=== PATIENT | male | born 1950 | race Caucasian/White ===

== ENCOUNTER 2017-01-28 11:46 | Inpatient (IN) | payer MEDICARE, OTHER ==
[~2017-01-28] VITALS: Ht 185.4 cm; Wt 89.4 kg
[~2017-01-28 11:46] MED LIST: ACET-1770 PO; ALBU18HF INH; AMLO10TA2 PO; AMLO5TAB4 PO; ATOR40TA78 PO; BENA40TA2 PO; CEFU500T PO; DEXA5DRO PO; FURO20TA3 PO; GUAI200T3 PO; HYDR-3237 PO; LABE100T26 PO; LEVO75TA5 PO; LORA1TAB PO; PRED10TA PO; SPIR50TA2 PO; TADA5TAB2 PO; TRIA1TAB3 PO; UMEC1DIS HOMEMEDPO
[2017-01-28 12:30] LABS: HEMATOCRIT 47.9 % (39.2-51.8); HEMOGLOBIN 16.5 g/dL (13.7-18.0); WHITE BLOOD COUNT 14.3 x10^3/uL (3.4-10)
[2017-01-28] MEDS ORDERED: SODIUM CHLORIDE 0.9% 1,000ML IVBOLUS ONE (12:30)
[2017-01-28] MEDS ORDERED: DIPHENHYDRAMINE 50 MG/ML, 1ML IVPush ONE (12:30)
[2017-01-28] MEDS ORDERED: PROCHLORPERAZINE 5 MG/ML, 2ML IVPush ONE (12:30)
[2017-01-28 12:41] LABS: BLOOD UREA NITROGEN 19 mg/dL (7-18)
[2017-01-28] MEDS ORDERED: PROCHLORPERAZINE 5 MG/ML, 2ML ONE (13:05)
[2017-01-28] MEDS ORDERED: DIPHENHYDRAMINE 50 MG/ML, 1ML ONE (13:05)
[2017-01-28] MEDS ORDERED: HYDR25TA6 PO (13:26)
[2017-01-28] MEDS ORDERED: TIOT4MIS3 INH (13:26)
[2017-01-28] MEDS ORDERED: POTASSIUM CHLORIDE 40 MEQ in SODIUM CHLORIDE 0.9% 500 ML IV ONE (14:30)
[2017-01-28] MEDS: POTASSIUM CHLORIDE 40 MEQ in SODIUM CHLORIDE 0.9% 500 ML IV SCH ×2 (16:00→19:39)
[2017-01-28] MEDS ORDERED: FUROSEMIDE 20 MG TABLET PO SCH (16:00)
[2017-01-28 16:13] VITALS: BP 139/80
[2017-01-28] MEDS: HYDROcodone/APAP 5/325 TABLET PO PRN (18:11)
[2017-01-28 19:26] VITALS: BP 117/62
[2017-01-28] MEDS: MECLIZINE CHEWABLE 25 MG TAB PO SCH (19:39)
[2017-01-28] MEDS: LABETALOL 100 MG TABLET PO SCH (19:39)
[2017-01-28] MEDS: ATORVASTATIN 40 MG TABLET PO SCH (19:42)
[2017-01-29] MEDS: MECLIZINE CHEWABLE 25 MG TAB PO SCH ×4 (00:17→20:02)
[2017-01-29 01:06] VITALS: BP 154/79
[2017-01-29] MEDS: HYDROcodone/APAP 5/325 TABLET PO PRN ×4 (03:42→16:54)
[2017-01-29 05:37] LABS: BLOOD UREA NITROGEN 14 mg/dL (7-18)
[2017-01-29] MEDS: LABETALOL 100 MG TABLET PO SCH ×2 (06:13→17:24)
[2017-01-29 07:13] VITALS: BP 176/94
[2017-01-29] MEDS: OLODATEROL HCL INH SCH (09:00)
[2017-01-29] MEDS ORDERED: HYDROCHLOROTHIAZIDE 25 MG TABLET PO SCH (09:00)
[2017-01-29] MEDS: [UNRECOGNIZED DRUG - OTHER] INH SCH (09:00)
[2017-01-29] MEDS: TIOTROPIUM BR INH SCH (09:00)
[2017-01-29] MEDS ORDERED: POTASSIUM CHLORIDE 20 MEQ TAB.ER.PRT PO ONE (09:00)
[2017-01-29] MEDS: METHOCARBAMOL 500 MG TABLET PO SCH ×3 (09:56→20:02)
[2017-01-29] MEDS: BENAZEPRIL 20 MG TABLET PO SCH (09:57)
[2017-01-29] MEDS: FUROSEMIDE 20 MG TABLET PO SCH (09:57)
[2017-01-29] MEDS: LEVOTHYROXINE 75 MCG TABLET PO SCH (09:59)
[2017-01-29] MEDS: AMLODIPINE 5 MG TABLET PO SCH (10:05)
[2017-01-29 10:49] LABS: PATH.CAST-FLAG NOT PRESENT; SPERM-FLAG NOT PRESENT; SRC-FLAG NOT PRESENT; XTAL-FLAG NOT PRESENT; YLC-FLAG NOT PRESENT
[2017-01-29 13:53] VITALS: BP_SYST 176; BP_SYST 187; BP_DIAS 85; BP_DIAS 96
[2017-01-29] MEDS ORDERED: morphine SULFATE 10 MG/ML, 1ML ONE ×2 (15:22→20:06)
[2017-01-29] MEDS: MORPHINE SULFATE 4 MG/ML, 1ML IVPush PRN ×2 (15:31→20:10)
[2017-01-29] MEDS: ATORVASTATIN 40 MG TABLET PO SCH (20:02)
[2017-01-29 20:23] VITALS: BP 132/74
[2017-01-30] VITALS (9 sets, daily range): BP systolic 139–200; BP diastolic 79–101
[2017-01-30] MEDS: MECLIZINE CHEWABLE 25 MG TAB PO SCH ×4 (02:02→20:11)
[2017-01-30] MEDS: ONDANSETRON 2MG/ML, 2ML IVPush PRN ×2 (02:10→12:55)
[2017-01-30] MEDS: HYDROcodone/APAP 5/325 TABLET PO PRN ×3 (02:12→20:27)
[2017-01-30] MEDS: LABETALOL 100 MG TABLET PO SCH ×3 (04:23→20:11)
[2017-01-30 05:22] LABS: HEMATOCRIT 47.2 % (39.2-51.8); HEMOGLOBIN 16.1 g/dL (13.7-18.0); WHITE BLOOD COUNT 12.8 x10^3/uL (3.4-10)
[2017-01-30 05:25] LABS: BLOOD UREA NITROGEN 12 mg/dL (7-18)
[2017-01-30] MEDS: METHOCARBAMOL 500 MG TABLET PO SCH ×4 (05:27→20:09)
[2017-01-30] MEDS: FUROSEMIDE 20 MG TABLET PO SCH (08:32)
[2017-01-30] MEDS: LEVOTHYROXINE 75 MCG TABLET PO SCH (08:33)
[2017-01-30] MEDS: BENAZEPRIL 20 MG TABLET PO SCH (08:33)
[2017-01-30] MEDS: AMLODIPINE 5 MG TABLET PO SCH ×2 (08:33→20:10)
[2017-01-30] MEDS: OLODATEROL HCL INH SCH (09:00)
[2017-01-30] MEDS: [UNRECOGNIZED DRUG - OTHER] INH SCH (09:00)
[2017-01-30] MEDS: TIOTROPIUM BR INH SCH (09:00)
[2017-01-30] MEDS ORDERED: LORazepam 2 MG/ML, 1ML IVPush ONE (12:00)
[2017-01-30] MEDS: hydrALAzine 20 MG/ML, 1ML IV SCH ×2 (12:01→18:30)
[2017-01-30] MEDS: FENTANYL 50 MCG PATCH TD SCH (12:02)
[2017-01-30] MEDS: KETOROLAC 30 MG/1 ML IVPush SCH ×2 (13:01→18:29)
[2017-01-30] MEDS ORDERED: ONDANSETRON 2MG/ML, 2ML IVPush ONE (18:00)
[2017-01-30] MEDS: LORazepam 2 MG/ML, 1ML IVPush PRN (18:28)
[2017-01-30] MEDS: ATORVASTATIN 40 MG TABLET PO SCH (20:10)
[2017-01-31] VITALS (11 sets, daily range): BP systolic 125–204; BP diastolic 72–112
[2017-01-31] MEDS: KETOROLAC 30 MG/1 ML IVPush SCH ×2 (00:21→06:11)
[2017-01-31] MEDS: hydrALAzine 20 MG/ML, 1ML IV SCH ×5 (00:21→23:43)
[2017-01-31] MEDS: MECLIZINE CHEWABLE 25 MG TAB PO SCH ×4 (01:40→21:32)
[2017-01-31] MEDS: LORazepam 2 MG/ML, 1ML IVPush PRN (01:40)
[2017-01-31] MEDS: HYDROcodone/APAP 5/325 TABLET PO PRN ×4 (02:31→21:31)
[2017-01-31] MEDS: METHOCARBAMOL 500 MG TABLET PO SCH ×4 (06:11→21:32)
[2017-01-31] MEDS: LABETALOL 100 MG TABLET PO SCH ×2 (06:35→18:13)
[2017-01-31] MEDS ORDERED: LORazepam 2 MG/ML, 1ML IVPush PRN (08:00)
[2017-01-31] MEDS ORDERED: HALOPERIDOL 5 MG/ML IM PRN (08:30)
[2017-01-31] MEDS: [UNRECOGNIZED DRUG - OTHER] INH SCH (09:00)
[2017-01-31] MEDS: OLODATEROL HCL INH SCH (09:00)
[2017-01-31] MEDS: TIOTROPIUM BR INH SCH (09:00)
[2017-01-31] MEDS: LEVOTHYROXINE 75 MCG TABLET PO SCH (09:00)
[2017-01-31] MEDS: AMLODIPINE 5 MG TABLET PO SCH ×2 (09:06→21:33)
[2017-01-31] MEDS: FUROSEMIDE 20 MG TABLET PO SCH (09:06)
[2017-01-31] MEDS: BENAZEPRIL 20 MG TABLET PO SCH (09:06)
[2017-01-31] MEDS: ATORVASTATIN 40 MG TABLET PO SCH (21:33)
[2017-02-01] VITALS (8 sets, daily range): BP systolic 122–165; BP diastolic 66–95
[2017-02-01] MEDS: MECLIZINE CHEWABLE 25 MG TAB PO SCH ×2 (03:05→10:13)
[2017-02-01] MEDS: METHOCARBAMOL 500 MG TABLET PO SCH ×4 (05:40→21:20)
[2017-02-01] MEDS: hydrALAzine 20 MG/ML, 1ML IV SCH ×4 (05:40→23:09)
[2017-02-01] MEDS: HYDROcodone/APAP 5/325 TABLET PO PRN ×3 (05:41→21:20)
[2017-02-01] MEDS: LABETALOL 100 MG TABLET PO SCH ×2 (05:41→18:27)
[2017-02-01] MEDS: OLODATEROL HCL INH SCH (09:00)
[2017-02-01] MEDS: [UNRECOGNIZED DRUG - OTHER] INH SCH (09:00)
[2017-02-01] MEDS: TIOTROPIUM BR INH SCH (09:00)
[2017-02-01] MEDS: LEVOTHYROXINE 75 MCG TABLET PO SCH (10:11)
[2017-02-01] MEDS: BENAZEPRIL 20 MG TABLET PO SCH (10:12)
[2017-02-01] MEDS: AMLODIPINE 5 MG TABLET PO SCH ×2 (10:13→21:20)
[2017-02-01] MEDS: FUROSEMIDE 20 MG TABLET PO SCH (10:13)
[2017-02-01] MEDS: ACETAMINOPHEN 325 MG TABLET PO PRN (15:15)
[2017-02-01] MEDS ORDERED: MECLIZINE 12.5 MG TABLET PO SCH (16:00)
[2017-02-01] MEDS ORDERED: MECLIZINE CHEWABLE 25 MG TAB PO SCH (16:00)
[2017-02-01] MEDS: MECLIZINE 12.5 MG TABLET PO SCH ×2 (16:44→23:00)
[2017-02-01] MEDS: ATORVASTATIN 40 MG TABLET PO SCH (21:20)
[2017-02-01] MEDS: ONDANSETRON 2MG/ML, 2ML IVPush PRN (22:40)
[2017-02-02] VITALS (8 sets, daily range): BP systolic 101–143; BP diastolic 60–92
[2017-02-02] MEDS: MECLIZINE 12.5 MG TABLET PO SCH ×4 (04:35→23:00)
[2017-02-02] MEDS: HYDROcodone/APAP 5/325 TABLET PO PRN (04:35)
[2017-02-02] MEDS: hydrALAzine 20 MG/ML, 1ML IV SCH ×4 (05:18→23:30)
[2017-02-02] MEDS: METHOCARBAMOL 500 MG TABLET PO SCH ×4 (05:56→20:45)
[2017-02-02] MEDS: LABETALOL 100 MG TABLET PO SCH ×2 (05:56→18:15)
[2017-02-02] MEDS ORDERED: OXYC5TAB3 PO (08:18)
[2017-02-02] MEDS ORDERED: MECL12.52 PO (08:18)
[2017-02-02] MEDS ORDERED: FENT1PAT76 TD (08:18)
[2017-02-02] MEDS ORDERED: ONDA4TAB13 SL (08:18)
[2017-02-02] MEDS ORDERED: ALPR-475 PO (08:18)
[2017-02-02] MEDS: AMLODIPINE 5 MG TABLET PO SCH ×2 (08:35→20:45)
[2017-02-02] MEDS: BENAZEPRIL 20 MG TABLET PO SCH (08:35)
[2017-02-02] MEDS: FUROSEMIDE 20 MG TABLET PO SCH (08:35)
[2017-02-02] MEDS: LEVOTHYROXINE 75 MCG TABLET PO SCH (08:35)
[2017-02-02] MEDS: TIOTROPIUM BR INH SCH (09:00)
[2017-02-02] MEDS: [UNRECOGNIZED DRUG - OTHER] INH SCH (09:00)
[2017-02-02] MEDS: OLODATEROL HCL INH SCH (09:00)
[2017-02-02] MEDS: FENTANYL REMOVE PATCH NOTE XX SCH (11:23)
[2017-02-02] MEDS: FENTANYL 50 MCG PATCH TD SCH (11:25)
[2017-02-02] MEDS ORDERED: methylPREDNISolone SOD SUCC 125 MG/2 ML IVPush ONE (12:30)
[2017-02-02] MEDS ORDERED: LIDOCAINE 1%, 20ML ONE (15:42)
[2017-02-02] MEDS ORDERED: GADOBUTROL 10 MMOL/10 ML VIAL ONE (17:10)
[2017-02-02] MEDS: FUROSEMIDE 20 MG/2 ML IV SCH (17:31)
[2017-02-02] MEDS: ATORVASTATIN 40 MG TABLET PO SCH (20:45)
[2017-02-03] VITALS (8 sets, daily range): BP systolic 100–134; BP diastolic 50–80
[2017-02-03] MEDS: MECLIZINE 12.5 MG TABLET PO SCH ×4 (05:00→23:00)
[2017-02-03 05:10] LABS: HEMATOCRIT 51.6 % (39.2-51.8); HEMOGLOBIN 17.6 g/dL (13.7-18.0); WHITE BLOOD COUNT 14.4 x10^3/uL (3.4-10)
[2017-02-03 05:24] LABS: BLOOD UREA NITROGEN 27 mg/dL (7-18)
[2017-02-03 05:28] LABS: ASPARTATE AMINO TRANSFERASE 15 U/L (15-37)
[2017-02-03] MEDS: hydrALAzine 20 MG/ML, 1ML IV SCH ×4 (05:30→23:09)
[2017-02-03] MEDS: LABETALOL 100 MG TABLET PO SCH ×2 (05:57→17:21)
[2017-02-03] MEDS: METHOCARBAMOL 500 MG TABLET PO SCH ×4 (05:57→20:09)
[2017-02-03] MEDS: TIOTROPIUM BR INH SCH (07:51)
[2017-02-03] MEDS: OLODATEROL HCL INH SCH (07:51)
[2017-02-03] MEDS: [UNRECOGNIZED DRUG - OTHER] INH SCH (07:51)
[2017-02-03] MEDS: FUROSEMIDE 20 MG/2 ML IV SCH ×2 (08:08→16:32)
[2017-02-03] MEDS ORDERED: MIDAZOLAM 1 MG/ML, 5ML ONE (11:40)
[2017-02-03] MEDS ORDERED: FLUMAZENIL 0.1 MG/1 ML, 5ML ONE (11:40)
[2017-02-03] MEDS ORDERED: FENTANYL PF 100 MCG/2ML ONE (11:40)
[2017-02-03] MEDS ORDERED: NALOXONE 1 MG/ML, 2ML ONE (11:41)
[2017-02-03] MEDS ORDERED: LIDOCAINE 1%, 20ML ONE (11:55)
[2017-02-03] MEDS ORDERED: GADOBUTROL 10 MMOL/10 ML VIAL ONE (13:58)
[2017-02-03] MEDS: AMLODIPINE 5 MG TABLET PO SCH ×2 (14:04→20:03)
[2017-02-03] MEDS: LEVOTHYROXINE 75 MCG TABLET PO SCH (14:05)
[2017-02-03] MEDS: BENAZEPRIL 20 MG TABLET PO SCH (14:05)
[2017-02-03] MEDS: ATORVASTATIN 40 MG TABLET PO SCH (20:03)
[2017-02-04 04:00] VITALS: BP 100/58
[2017-02-04] MEDS: MECLIZINE 12.5 MG TABLET PO SCH ×4 (05:00→22:03)
[2017-02-04 05:30] VITALS: BP 100/60
[2017-02-04] MEDS: hydrALAzine 20 MG/ML, 1ML IV SCH (05:30)
[2017-02-04] MEDS: LABETALOL 100 MG TABLET PO SCH (05:39)
[2017-02-04] MEDS: METHOCARBAMOL 500 MG TABLET PO SCH ×4 (05:39→22:03)
[2017-02-04 07:30] VITALS: BP 99/64
[2017-02-04] MEDS: OLODATEROL HCL INH SCH (08:58)
[2017-02-04] MEDS: [UNRECOGNIZED DRUG - OTHER] INH SCH (08:58)
[2017-02-04] MEDS: LEVOTHYROXINE 75 MCG TABLET PO SCH (08:58)
[2017-02-04] MEDS: TIOTROPIUM BR INH SCH (08:58)
[2017-02-04] MEDS: FUROSEMIDE 20 MG/2 ML IV SCH ×2 (08:59→15:56)
[2017-02-04 14:29] VITALS: BP 105/65
[2017-02-04 19:17] VITALS: BP 98/53
[2017-02-04] MEDS: ATORVASTATIN 40 MG TABLET PO SCH (22:03)
[2017-02-05 03:02] VITALS: BP 94/43
[2017-02-05] MEDS: ACETAMINOPHEN 325 MG TABLET PO PRN (04:33)
[2017-02-05] MEDS: METHOCARBAMOL 500 MG TABLET PO SCH ×2 (04:33→10:00)
[2017-02-05] MEDS: MECLIZINE 12.5 MG TABLET PO SCH ×2 (04:33→09:59)
[2017-02-05 07:00] VITALS: BP 101/58
[2017-02-05] MEDS: FUROSEMIDE 20 MG/2 ML IV SCH (07:30)
[2017-02-05] MEDS ORDERED: ACET250T2 PO (08:13)
[2017-02-05] MEDS: TIOTROPIUM BR INH SCH (08:26)
[2017-02-05] MEDS: [UNRECOGNIZED DRUG - OTHER] INH SCH (08:26)
[2017-02-05] MEDS: OLODATEROL HCL INH SCH (08:26)
[2017-02-05] MEDS: LEVOTHYROXINE 75 MCG TABLET PO SCH (08:27)
[2017-02-05] MEDS ORDERED: POLY17PO5 PO (08:30)
[2017-02-05] MEDS ORDERED: FUROSEMIDE 20 MG TABLET PO SCH (09:00)
[2017-02-05] MEDS: ALBUTEROL SULFATE 2.5 MG/3 ML HHN PRN ×2 (09:04→14:55)
[2017-02-05] MEDS ORDERED: FLUT1DIS IH (09:24)
[2017-02-05] MEDS: FENTANYL REMOVE PATCH NOTE XX SCH (12:00)
[2017-02-05 12:45] VITALS: BP 100/45
== END 2017-02-05 16:08 | DRG 103 ==
LOC: ED 14:34 → 4WST 14:42 → SUATTDRO 15:01 → ED 16:01 → 4WST 01-31 20:27
PROVIDERS: ADMIT Internal Medicine; ATTEND Internal Medicine
PROC: 009U3ZZ Drainage of Spinal Canal, Percutaneous Approach (ICD-10-PCS; principal; 2017-02-03)
PROC: B01B1ZZ Fluoroscopy of Spinal Cord using Low Osmolar Contrast (ICD-10-PCS; 2017-02-03)
DX: G93.2 Benign intracranial hypertension (principal); J96.10 Chronic respiratory failure, unspecified whether with hypoxia or hypercapnia; I11.0 Hypertensive heart disease with heart failure; E87.1 Hypo-osmolality and hyponatremia; I50.30 Unspecified diastolic (congestive) heart failure; H81.09 Meniere's disease, unspecified ear; J44.9 Chronic obstructive pulmonary disease, unspecified; E03.9 Hypothyroidism, unspecified; M54.2 Cervicalgia; R27.0 Ataxia, unspecified; D72.829 Elevated white blood cell count, unspecified; E78.5 Hyperlipidemia, unspecified; E87.6 Hypokalemia; G89.29 Other chronic pain; H53.149 Visual discomfort, unspecified; R29.6 Repeated falls; Z80.0 Family history of malignant neoplasm of digestive organs; Z80.8 Family history of malignant neoplasm of other organs or systems; Z87.891 Personal history of nicotine dependence
CPT/HCPCS: 36415; 62270; 70450; 70546; 70551; 71010; 80048; 80053; 80329; 81001; 82040; 83735; 84100; 84590; 85025; 93005; 94640; 96361; 96365; 96375; 99156; 99157; A9585; J1885; J2250; J2405; J3010; J3480; J3490; J7613; G0480; J0360; J0780; J1200; J1630; J1940; J2060; J2310; J2930; J7030; J7040

== ENCOUNTER 2017-02-12 13:05 | Inpatient (IN) | payer MEDICARE ==
[~2017-02-12] VITALS: Ht 188 cm; Wt 88.1 kg
[~2017-02-12 13:05] MED LIST changes: +ACET250T2 PO; +ALPR-475 PO; +FENT1PAT76 TD; +FLUT1DIS IH; +HYDR25TA6 PO; +MECL12.52 PO; +ONDA4TAB13 SL; +OXYC5TAB3 PO; +POLY17PO5 PO; +TIOT4MIS3 INH
[2017-02-12] MEDS ORDERED: SODIUM CHLORIDE FLUSH 10ML SYR IVF ONE (14:00)
[2017-02-12 14:34] LABS: HEMATOCRIT 48.9 % (39.2-51.8); HEMOGLOBIN 16.6 g/dL (13.7-18.0); WHITE BLOOD COUNT 14.7 x10^3/uL (3.4-10)
[2017-02-12 15:08] LABS: BLOOD UREA NITROGEN 26 mg/dL (7-18)
[2017-02-12] MEDS ORDERED: SODIUM CHLORIDE 0.9% 1,000 ML IV SCH (16:34)
[2017-02-12] MEDS ORDERED: DOCUSATE 100 MG CAPSULE PO PRN (17:00)
[2017-02-12] MEDS ORDERED: ACETAMINOPHEN 325 MG TABLET PO PRN (17:00)
[2017-02-12] MEDS: NICOTINE 21 MG/24 HR PATCH.TD24 TD SCH (17:00)
[2017-02-12] MEDS ORDERED: hydrALAzine 20 MG/ML, 1ML IVPush PRN (17:00)
[2017-02-12] MEDS ORDERED: LABETALOL 5MG/ML, 20ML IVPush PRN (17:00)
[2017-02-12] MEDS ORDERED: BISACODYL 10 MG SUPP PR PRN (17:00)
[2017-02-12] MEDS ORDERED: OXYcodone IR 5MG TABLET PO PRN (18:00)
[2017-02-12] MEDS ORDERED: MECLIZINE CHEWABLE 25 MG TAB PO PRN (18:00)
[2017-02-12] MEDS ORDERED: POLYETHYLENE GLYCOL 17 GM PACKET PO PRN (18:00)
[2017-02-12] MEDS ORDERED: FUROSEMIDE 20 MG TABLET PO SCH (18:00)
[2017-02-12] MEDS ORDERED: ONDANSETRON ODT 4 MG PO PRN (18:00)
[2017-02-12] MEDS ORDERED: ALBUTEROL SULFATE 2.5 MG/3 ML NPPB PRN (19:00)
[2017-02-12 19:08] VITALS: BP 136/82
[2017-02-12] MEDS: FUROSEMIDE MC SCH (19:30)
[2017-02-12] MEDS: ATORVASTATIN 40 MG TABLET PO SCH (20:12)
[2017-02-12] MEDS: OXYcodone IR 5MG TABLET PO PRN (20:12)
[2017-02-12] MEDS ORDERED: ACETAZOLAMIDE PO SCH (21:00)
[2017-02-12] MEDS: NS + 20MEQ KCL 1,000 ML IV SCH (21:15)
[2017-02-12] MEDS: HEPARIN 5,000 UNITS/ML, 1ML SQ SCH (23:00)
[2017-02-13 01:20] VITALS: BP 128/76
[2017-02-13] MEDS: FUROSEMIDE MC SCH ×4 (03:30→23:47)
[2017-02-13] MEDS: ONDANSETRON 2MG/ML, 2ML IVPush PRN ×2 (04:29→19:47)
[2017-02-13] MEDS: LEVOTHYROXINE 75 MCG TABLET PO SCH (05:46)
[2017-02-13 05:59] LABS: HEMATOCRIT 45.9 % (39.2-51.8); HEMOGLOBIN 15.8 g/dL (13.7-18.0); WHITE BLOOD COUNT 14.8 x10^3/uL (3.4-10)
[2017-02-13 06:17] LABS: ASPARTATE AMINO TRANSFERASE 15 U/L (15-37); BLOOD UREA NITROGEN 25 mg/dL (7-18)
[2017-02-13 06:45] VITALS: BP 116/71
[2017-02-13] MEDS: OXYcodone IR 5MG TABLET PO PRN ×3 (06:48→17:41)
[2017-02-13] MEDS ORDERED: POTASSIUM CHLORIDE 20 MEQ TAB.ER.PRT PO ONE (07:30)
[2017-02-13] MEDS ORDERED: FLUTICASONE/VILANTEROL 100-25MCG/INH INH SCH (09:00)
[2017-02-13] MEDS ORDERED: FUROSEMIDE 20 MG TABLET PO SCH (09:00)
[2017-02-13] MEDS ORDERED: AcetaZOLAMIDE ER 500 MG CAPSULE PO SCH ×2 (09:00→21:00)
[2017-02-13] MEDS: HEPARIN 5,000 UNITS/ML, 1ML SQ SCH ×4 (10:30→23:59)
[2017-02-13] MEDS: NS + 20MEQ KCL 1,000 ML IV SCH ×2 (10:33→23:58)
[2017-02-13 12:12] VITALS: BP 111/74
[2017-02-13] MEDS: morphine SULFATE 10 MG/ML, 1ML IVPush PRN (16:42)
[2017-02-13] MEDS: NICOTINE 21 MG/24 HR PATCH.TD24 TD SCH (17:00)
[2017-02-13 19:06] VITALS: BP 128/82
[2017-02-13] MEDS: ATORVASTATIN 40 MG TABLET PO SCH (19:41)
[2017-02-13] MEDS: [UNRECOGNIZED DRUG - REMARK] MC SCH (23:45)
[2017-02-13] MEDS: METOCLOPRAMIDE 5 MG/ML, 2ML IVPush PRN (23:58)
[2017-02-14] MEDS: [UNRECOGNIZED DRUG - REMARK] MC SCH ×7 (00:11→10:45)
[2017-02-14 01:24] VITALS: BP 117/80
[2017-02-14] MEDS: LEVOTHYROXINE 75 MCG TABLET PO SCH (03:30)
[2017-02-14] MEDS: METOCLOPRAMIDE 5 MG/ML, 2ML IVPush PRN ×2 (06:08→16:36)
[2017-02-14] MEDS: OXYcodone IR 5MG TABLET PO PRN ×3 (06:08→13:56)
[2017-02-14 06:10] LABS: HEMATOCRIT 45.1 % (39.2-51.8); HEMOGLOBIN 15.7 g/dL (13.7-18.0); WHITE BLOOD COUNT 12.3 x10^3/uL (3.4-10)
[2017-02-14 06:32] LABS: BLOOD UREA NITROGEN 19 mg/dL (7-18)
[2017-02-14 07:27] VITALS: BP 150/88
[2017-02-14] MEDS ORDERED: MIDAZOLAM 1 MG/ML, 5ML ONE (07:57)
[2017-02-14] MEDS ORDERED: FENTANYL PF 100 MCG/2ML ONE (07:57)
[2017-02-14] MEDS: FLUTICASONE/VILANTEROL 100-25MCG/INH INH SCH (09:00)
[2017-02-14] MEDS ORDERED: GADOBUTROL 10 MMOL/10 ML PFS ONE (09:49)
[2017-02-14] MEDS: HEPARIN 5,000 UNITS/ML, 1ML SQ SCH ×2 (10:30→20:31)
[2017-02-14] MEDS: morphine SULFATE 10 MG/ML, 1ML IVPush PRN ×3 (11:24→21:57)
[2017-02-14] MEDS: NS + 20MEQ KCL 1,000 ML IV SCH ×2 (12:20→16:36)
[2017-02-14] MEDS ORDERED: DEXAMETHASONE 4 MG/ML, 5ML IVPush ONE (13:30)
[2017-02-14] MEDS: ONDANSETRON 2MG/ML, 2ML IVPush PRN (13:59)
[2017-02-14] MEDS: DEXAMETHASONE 4 MG/ML, 1ML IVPush SCH ×2 (14:00→20:31)
[2017-02-14 14:03] VITALS: BP 138/80
[2017-02-14] MEDS: NICOTINE 21 MG/24 HR PATCH.TD24 TD SCH (16:36)
[2017-02-14] MEDS: PLEASE ENTER ALLERGIES MC SCH ×2 (19:00)
[2017-02-14] MEDS ORDERED: HYDROmorphone 2 MG/ML, 1ML IVPush PRN (19:00)
[2017-02-14] MEDS ORDERED: DIAZEPAM 2 MG TABLET PO ONE ×2 (19:00→20:30)
[2017-02-14 19:38] VITALS: BP 175/96
[2017-02-14] MEDS: ATORVASTATIN 40 MG TABLET PO SCH (20:31)
[2017-02-15 00:08] VITALS: BP 140/96
[2017-02-15] MEDS: PLEASE ENTER ALLERGIES MC SCH ×2 (00:57)
[2017-02-15] MEDS: DEXAMETHASONE 4 MG/ML, 1ML IVPush SCH ×3 (02:29→14:20)
[2017-02-15] MEDS: morphine SULFATE 10 MG/ML, 1ML IVPush PRN ×3 (02:29→09:45)
[2017-02-15] MEDS: ONDANSETRON 2MG/ML, 2ML IVPush PRN (02:29)
[2017-02-15] MEDS: NS + 20MEQ KCL 1,000 ML IV SCH (05:33)
[2017-02-15] MEDS: HEPARIN 5,000 UNITS/ML, 1ML SQ SCH ×2 (05:33→14:20)
[2017-02-15] MEDS: LEVOTHYROXINE 75 MCG TABLET PO SCH (05:33)
[2017-02-15 08:50] VITALS: BP 167/104
[2017-02-15] MEDS ORDERED: DIPHENHYDRAMINE 50 MG/ML, 1ML IVPush PRN (09:00)
[2017-02-15] MEDS: FLUTICASONE/VILANTEROL 100-25MCG/INH INH SCH (09:00)
[2017-02-15 09:03] VITALS: BP 148/97
[2017-02-15] MEDS ORDERED: OMNIPAQUE 350 MG/ML, 100ML BOTTLE ONE (10:09)
[2017-02-15] MEDS: DIAZEPAM 2 MG TABLET PO PRN ×2 (14:19→20:27)
[2017-02-15 14:54] VITALS: BP 127/92
[2017-02-15] MEDS: NICOTINE 21 MG/24 HR PATCH.TD24 TD SCH (17:00)
[2017-02-15] MEDS: OXYcodone IR 5MG TABLET PO PRN ×2 (17:20→23:46)
[2017-02-15 18:50] VITALS: BP 162/95
[2017-02-15] MEDS ORDERED: DEXAMETHASONE 4 MG/ML, 1ML PO SCH (20:00)
[2017-02-15] MEDS: DEXAMETHASONE 4 MG TABLET PO SCH (20:27)
[2017-02-16] MEDS: DEXAMETHASONE 4 MG TABLET PO SCH ×4 (02:02→20:56)
[2017-02-16 03:50] VITALS: BP 158/114
[2017-02-16 04:04] VITALS: BP 118/83
[2017-02-16] MEDS: OXYcodone IR 5MG TABLET PO PRN ×2 (06:04→12:30)
[2017-02-16 07:45] VITALS: BP 160/76
[2017-02-16] MEDS: HALOPERIDOL 1 MG TABLET PO PRN (08:35)
[2017-02-16 13:54] VITALS: BP 111/69
[2017-02-16] MEDS: NICOTINE 21 MG/24 HR PATCH.TD24 TD SCH (15:39)
[2017-02-16 20:38] VITALS: BP 93/59
[2017-02-17 01:52] VITALS: BP 126/81
[2017-02-17] MEDS: DEXAMETHASONE 4 MG TABLET PO SCH ×4 (02:21→20:08)
[2017-02-17 07:44] VITALS: BP 110/70
[2017-02-17] MEDS: HALOPERIDOL 1 MG TABLET PO PRN (10:19)
[2017-02-17] MEDS: OXYcodone IR 5MG TABLET PO PRN ×3 (10:28→23:54)
[2017-02-17] MEDS: NICOTINE 21 MG/24 HR PATCH.TD24 TD SCH (14:23)
[2017-02-17 14:50] VITALS: BP 116/77
[2017-02-17 19:53] VITALS: BP 137/92
[2017-02-18] MEDS: DEXAMETHASONE 4 MG TABLET PO SCH ×3 (02:23→13:34)
[2017-02-18 03:53] VITALS: BP 118/83
[2017-02-18] MEDS: OXYcodone IR 5MG TABLET PO PRN (04:32)
[2017-02-18 08:15] VITALS: BP 108/76
[2017-02-18 10:07] LABS: A/G RATIO 1.1 (0.7-1.7); ALPHA-1-GLOBULIN 0.3 g/dL (0.0-0.4); BETA GLOBULIN 0.8 g/dL (0.7-1.3); GAMMA GLOBULIN 0.7 g/dL (0.4-1.8); PROTEIN TOTAL 5.7 g/dL (6.0-8.5)
[2017-02-18] MEDS ORDERED: MORP15TA3 PO (12:18)
[2017-02-18] MEDS ORDERED: DIAZ2TAB3 PO (12:18)
[2017-02-18] MEDS ORDERED: OXYC5TAB3 PO (12:18)
== END 2017-02-18 14:30 | disposition hospice, home (50) | DRG 181 ==
LOC: ED 15:57 → EDIP 16:34 → 3NE 18:45 → 3NW 02-14 13:10
PROVIDERS: ADMIT Family Medicine; ATTEND Family Medicine
PROC: 009U3ZX Drainage of Spinal Canal, Percutaneous Approach, Diagnostic (ICD-10-PCS; principal; 2017-02-12)
PROC: B01B1ZZ Fluoroscopy of Spinal Cord using Low Osmolar Contrast (ICD-10-PCS; 2017-02-12)
DX: C34.90 Malignant neoplasm of unspecified part of unspecified bronchus or lung (principal); C79.31 Secondary malignant neoplasm of brain; C78.1 Secondary malignant neoplasm of mediastinum; C90.00 Multiple myeloma not having achieved remission; E86.0 Dehydration; D72.829 Elevated white blood cell count, unspecified; E11.9 Type 2 diabetes mellitus without complications; E87.1 Hypo-osmolality and hyponatremia; F19.20 Other psychoactive substance dependence, uncomplicated; Z99.81 Dependence on supplemental oxygen; G93.2 Benign intracranial hypertension; E87.6 Hypokalemia; F17.200 Nicotine dependence, unspecified, uncomplicated; H54.7 Unspecified visual loss; H91.90 Unspecified hearing loss, unspecified ear; I10 Essential (primary) hypertension; I71.4 Abdominal aortic aneurysm, without rupture; J44.9 Chronic obstructive pulmonary disease, unspecified; Z51.5 Encounter for palliative care; Z66 Do not resuscitate; Z88.8 Allergy status to other drugs, medicaments and biological substances; Z71.6 Tobacco abuse counseling
CPT/HCPCS: 36415; 62270; 70450; 70543; 70546; 70553; 71260; 74177; 77075; 80048; 80053; 81003; 82040; 82607; 84155; 84165; 85025; 85651; 86140; 86141; 99156; 99157; 99285; A9585; J1100; J1170; J1644; J2250; J2405; J3010; J3480; Q0162; Q9967; 92523-GN; J2270; J2765